=== PATIENT | male | born 1965 | race Caucasian/White ===

== ENCOUNTER 2024-12-02 03:05 | Emergency (ER) | payer MEDICAID ==
[~2024-12-02] VITALS: Ht 177.8 cm; Wt 99.8 kg
[2024-12-02 03:08] VITALS: BP 139/77
[2024-12-02] MEDS: HYDROCODONE/APAP 10-325 MG TABLET PO ONE (03:49)
[2024-12-02] MEDS: IBUPROFEN 800 MG TABLET PO ONE (03:49)
[2024-12-02 04:13] LABS: PLATELET COUNT (AUTO) 356 K/uL (152-348); RED BLOOD CELL COUNT(AUTO) 4.27 MIL/uL (4.06-5.63); RED CELL DISTRIBUTION WIDTH 14.7 % (12.1-16.2); WHITE BLOOD COUNT (AUTO) 12.0 K/uL (3.6-10.2)
[2024-12-02 04:19] LABS: CREATININE 1.1 mg/dL (0.6-1.3); SODIUM SERUM 140.0 mmol/L (136-145); UREA NITROGEN, BLOOD 26.0 mg/dL (7-18)
[2024-12-02 04:25] LABS: ASPARTATE AMINOTRANSFERASE 17.0 U/L (15-37); TOTAL PROTEIN, SERUM 7.5 g/dL (6.4-8.2)
[2024-12-02] MEDS ORDERED: AMOX-430 PO (05:57)
[2024-12-02] MEDS ORDERED: HYDR-3980 PO (05:57)
[2024-12-02] MEDS ORDERED: SULF1TAB48 PO (05:57)
[2024-12-02] MEDS ORDERED: INDO50CA92 PO (05:57)
[2024-12-02] MEDS: SULFAMETH/TRIMETH 800/160 MG TABLET PO ONE (05:59)
[2024-12-02] MEDS: AMOXICILLIN-CLAVUL 875-125MG TABLET PO ONE (05:59)
[2024-12-02 06:12] VITALS: BP 140/78; TEMP 98.2; O2SAT 98
== END 2024-12-02 06:13 | disposition home or self-care (01) ==
LOC: ER 03:13
DX: M13.10 Monoarthritis, not elsewhere classified, unspecified site (principal); M25.532 Pain in left wrist; Z79.899 Other long term (current) drug therapy; Z59.00 Homelessness unspecified
CPT/HCPCS: 36415; 73100; 83605; 84550; 85025; 85730; 86140; A4606; A4663